=== PATIENT | male | born 2005 | race Caucasian/White ===

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

== ENCOUNTER 2025-05-12 09:10 | Day surgery (SDC) | payer OTHER ==
[~2025-05-12] VITALS: Ht 177.8 cm; Wt 60.7 kg
[2025-05-12] MEDS ORDERED: SERT50TA29 PO (09:17)
[2025-05-12 11:20] LABS: BASO # 0.0 10^3/uL (0.0-0.2); BASO % 0.4 % (0.0-1.0); EOS # 0.2 10^3/uL (0.0-0.5); EOS % 1.9 % (0.0-3.0); LYMPH # 1.1 10^3/uL (1.5-5.0); LYMPH % 10.2 % (24.0-44.0); MONO # 1.2 10^3/uL (0.0-0.8); MONO % 10.9 % (2.0-8.0); NEUTROPHILS # 8.2 10^3/uL (1.5-8.5); NEUTROPHILS % 76.5 % (36.0-66.0); PLATELET COUNT, AUTOMATED 192 10^3/uL (150-450)
[2025-05-12] MEDS ORDERED: ISOVUE-370 76% 100 ML VIAL As Ordered ONE (11:20)
[2025-05-12] MEDS: ONDANSETRON 4MG 2ML VIAL IV ONE (11:48)
[2025-05-12 12:14] LABS: ALT/SGPT 17.0 U/L (7.0-40); AST/SGOT 15.0 U/L (<34)
[2025-05-12] MEDS: metroNIDAZOLE 500 MG in IV 1 EA IV ONE (13:18)
[2025-05-12] MEDS: CIPROFLOXACIN 400 MG in IV 1 EA IV ONE (13:45)
[2025-05-12] MEDS ORDERED: HOME MED LIST COMPLETE! XX SCH (15:25)
[2025-05-12] MEDS ORDERED: dexAMETHasone 4 MG/ML 1 ML VIAL As Ordered ONE (15:36)
[2025-05-12] MEDS ORDERED: ONDANSETRON 4MG 2ML VIAL As Ordered ONE (15:36)
[2025-05-12] MEDS ORDERED: MIDAZOLAM INJ 2 MG/2 ML VIAL As Ordered ONE (15:36)
[2025-05-12] MEDS ORDERED: ROCURONIUM BROMIDE 50MG/5ML VIAL As Ordered ONE (15:36)
[2025-05-12] MEDS ORDERED: KETOROLAC 30 MG/ML 1 ML VIAL As Ordered ONE (15:36)
[2025-05-12] MEDS ORDERED: LIDOCAINE 2% 100 MG/5 ML SDV (FOR ANES.) As Ordered ONE (15:36)
[2025-05-12] MEDS ORDERED: ACETAMINOPHEN 1000MG/100ML IV BAG As Ordered ONE (16:00)
[2025-05-12] MEDS ORDERED: HYDROmorphone HCL 2 MG/ML 1 ML VIAL As Ordered ONE (16:09)
[2025-05-12] MEDS ORDERED: SUGAMMADEX SODIUM 500 MG/5 ML VIAL As Ordered ONE (16:10)
[2025-05-12] MEDS ORDERED: HYDR-3713 PO (16:43)
[2025-05-12] MEDS ORDERED: METR-265 PO (16:46)
[2025-05-12] MEDS ORDERED: LEVO1TAB39 PO (16:46)
[2025-05-12] MEDS: ONDANSETRON 4MG 2ML VIAL IV PRN (17:10)
[2025-05-12 18:15] VITALS: BP 120/72; TEMP 97; O2SAT 100
== END 2025-05-12 18:48 | disposition home or self-care (01) ==
LOC: M ED 09:10 → M SDC 14:59
PROVIDERS: ATTEND Surgery
DX: K35.80 Unspecified acute appendicitis (principal); F90.9 Attention-deficit hyperactivity disorder, unspecified type; Z79.899 Other long term (current) drug therapy
CPT/HCPCS: 44970; 74177; 80047; 80076; 83690; 85025; 88304; 99285; J0131; J0665; J0744; J1100; J1171; J1836; J1885; J2175; J2250; J2405; J2765; J3010; Q9967